=== PATIENT | female | born 1950 | race Caucasian/White ===

== ENCOUNTER 2019-10-05 09:37 | Outpatient (CLI) | payer MEDICARE, SELFPAY ==
--- NOTE | ~2019-10-05 | CT_ITS ---
EXAMINATION: CT abdomen pelvis wo con DATE: 10/05/2019 10:10 INDICATION: Malignant neoplasm of right kidney, except renal pelvis. TECHNIQUE: Computed tomography (CT) of the abdomen and pelvis was performed without intravenous contr ast. Automated exposure control and iterative reconstruction technique were employed. The dose-length product was 638.19 mGy-cm. COMPARISON: CT abdomen 06/01/2019 FINDINGS: The visualized portions of the lung bases demonstrate mild atelectasis. There is mild bronc hiectasis in right middle lobe and lingula. No pleural effusion. The heart size is normal. There are coronary artery calcifications. No pericardial effusion. The liver and spleen are normal. There are g allstones in the gallbladder, which is normal in size. The pancreas, adrenal glands, and left kidney are normal. There are changes of right nephrectomy. There are no dilated loops of bowel. The appendix is normal. There are no pathologically enlarged lymph nodes. There is no free intraperitoneal fluid. There is severe lower lumbar spondylosis. IMPRESSION: 1. No evidence of metastatic disease. Reviewed, dictated and finalized at location A. DENT CARE COORDINATOR
--- NOTE | ~2019-10-05 | XR_ITS ---
EXAMINATION: XR chest 2V EXAM DATE: 10/05/2019 10:03 INDICATION: Cardiomegaly, acute versus chronic interstitial opacities on prior chest x-ray. TECHNIQUE: Frontal and lateral projections of the chest obtained and reviewed. Comparison is made to prior examination from 06/07/2019. FINDINGS: Previously seen free intraperitoneal gas has resolved. The heart size has normalized and t he interstitial prominent reticulation has resolved, was probably mild pulmonary edema. No confluent consolidation, pneumothorax or pleural effusion suspected. Mild thoracic spondylosis. IMPRESSION: Unremarkable XR chest 2V exam. Reviewed, dictated and finalized at location B. TRICITY TRADER
== END 2019-10-05 09:38 | disposition home or self-care (01) ==
LOC: ANHIMG 09:51
PROVIDERS: Visit Provider Urology
DX: C64.1 Malignant neoplasm of right kidney, except renal pelvis (principal)
CPT/HCPCS: 71046; 74176

== ENCOUNTER 2020-04-12 10:54 | Outpatient (CLI) | payer MEDICARE, SELFPAY ==
--- NOTE | ~2020-04-12 | CT_ITS ---
EXAMINATION: CT abdomen pelvis wo con DATE: 04/12/2020 11:56 INDICATION: Right kidney cancer TECHNIQUE: Computed tomography (CT) of the abdomen and pelvis was performed without intravenous contr ast. The dose-length product (DLP) was 856.52 mGy-cm. Automated exposure control and iterative recons truction technique were employed. COMPARISON: 10/05/2019 FINDINGS: Minimal dependent atelectasis is present in the lung bases. The heart size is normal. There are changes of right nephrectomy. Stones are present in the nondistended gallbladder. The liver, spl een, pancreas, and adrenal glands are normal. The left kidney is unremarkable. No pathologically enla rged abdominal or pelvic lymph nodes are identified. There is no free intraperitoneal gas or evidence of bowel obstruction. There is severe lumbar spondylosis at L5-S1. IMPRESSION: 1. Changes of right nephrectomy without evidence of recurrent or metastatic disease. 2. Cholelithiasis without evidence of cholecystitis. Reviewed, dictated and finalized at location A. IMPRESSION: 1. Changes of right nephrectomy without evidence of recurrent or metastatic dis ease. 2. Cholelithiasis without evidence of cholecystitis.
--- NOTE | ~2020-04-12 | XR_ITS ---
EXAMINATION: XR chest 2V DATE: 04/12/2020 11:22 INDICATION: Malignant neoplasm of right kidney. TECHNIQUE: Frontal and lateral views of the chest were obtained. COMPARISON: Chest 2 views 10/05/2019, CT abdomen and pelvis 04/12/2020 FINDINGS: There is no pneumonia, pleural effusion, or pneumothorax. Cardiomegaly is noted. There is m ild chronic anterior wedging of multiple midthoracic vertebral bodies. IMPRESSION: 1. Cardiomegaly. Reviewed, dictated and finalized at location A. IMPRESSION: 1. Cardiomegaly.
== END 2020-04-12 10:55 | disposition home or self-care (01) ==
PROVIDERS: Visit Provider Urology
DX: C64.1 Malignant neoplasm of right kidney, except renal pelvis (principal); K80.20 Calculus of gallbladder without cholecystitis without obstruction; I51.7 Cardiomegaly
CPT/HCPCS: 71046; 74176

== ENCOUNTER 2020-10-01 15:16 | Outpatient (CLI) | payer MEDICARE, SELFPAY ==
--- NOTE | ~2020-10-01 | XR_ITS ---
EXAMINATION: XR chest 2V 10/01/2020 15:53 INDICATION: Malignant neoplasm of the right kidney. PROCEDURE: PA and lateral views of the chest COMPARISON: No prior studies for comparison. FINDINGS: The lungs are clear. The cardiomediastinal silhouette is within normal limits. There are no pleural effusions. There is no pneumothorax suspected. The lungs are hyperinflated which is cons istent with, but not diagnostic of chronic obstructive pulmonary disease. IMPRESSION: 1: NO ACUTE CARDIOPULMONARY DISEASE. Reviewed, dictated and finalized at location B. GER SOCIAL RESPONSIBILITY
--- NOTE | ~2020-10-01 | CT_ITS ---
EXAMINATION: CT abdomen pelvis wo con DATE: 10/01/2020 15:44 INDICATION: Malignant neoplasm of the right kidney. TECHNIQUE: Computed tomography (CT) of the abdomen and pelvis was performed without intravenous contr ast. Automated exposure control and iterative reconstruction technique were employed. The dose-length product was 536.95 mGy-cm. COMPARISON: 04/12/2020 and 10/05/2019 FINDINGS: Chronic bronchiectatic changes and peripheral irregular septal line thickening at the bilateral lung bases, the latter consistent with chronic interstitial fibrosis in either a usual interstitial pneumo [place] (UIP) or nonspecific interstitial pneumonia (NSIP) pattern. There are several small centrilobular nodules in the bilateral lower lobes most likely infectious/inflammatory in etiology. Heart size is normal. No pericardial or pleural effusion. Scattered atherosclerotic coronary artery calcifications. Multiple calcified gallstones in the otherwise normal gallbladder. Liver, spleen, pancreas, left kid ly and bilateral adrenal glands are normal. Postoperative change of prior right nephrectomy with no development of soft tissue density renal fossa to suggest local recurrence of reported right renal ma lignancy. Bowels including the appendix are normal. Bladder, uterus and bilateral adnexa are unremark able. Tiny fat-containing umbilical hernia. No free intraperitoneal gas or fluid. No interval change since 10/05/2019 in a likely benign partially calcified 1.8 x 1.2 cm nodules located in the left perir ectal fat most likely either sequela of old granulomatous disease or heterotopic ossification related to fat necrosis. No pathologically enlarged abdominal or pelvic lymphadenopathy. Age indeterminate L 3 compression fracture with 20% vertebral body height loss juxtaposed Schmorl's node along the inferi or endplate of L2, both findings which are new since 04/12/2020. Severe lower lumbar spondylosis. IMPRESSION: 1. Status post right nephrectomy. No evident recurrent or metastatic disease. Line 2. Cholelithiasis. 3. Age-indeterminate mild L3 compression fracture and Schmorl's node along the inferior endplate of L 2, both new since 04/12/2020. Reviewed, dictated and finalized at location A. HER PACKING IMPRESSION: 1. Status post right nephrectomy. No evident recurrent or metastatic disease. L ine 2. Cholelithiasis. 3. Age-indeterminate mild L3 compression fracture and Schmorl's node along the inferior endplate of L2, both new since 04/12/2020.
== END 2020-10-01 15:17 | disposition home or self-care (01) ==
PROVIDERS: Visit Provider Urology
DX: C64.1 Malignant neoplasm of right kidney, except renal pelvis (principal); K80.20 Calculus of gallbladder without cholecystitis without obstruction
CPT/HCPCS: 71046; 74176